=== PATIENT | male | born 1945 | race Caucasian/White ===

== ENCOUNTER → 2017-05-09 | Outpatient (CLI) | payer MEDICARE, BC ==
[~2017-05-09] MED LIST: no medications
== END ==
LOC: ROC 08:20
PROVIDERS: ATTEND Radiology Radiation Oncology
DX: Z02.9 Encounter for administrative examinations, unspecified (principal)

== ENCOUNTER → 2017-06-13 | Outpatient (CLI) | payer MEDICARE, BC ==
[~2017-06-13] MED LIST changes: +DOCU-131 PO; +TRAM50TA2 PO
== END ==
LOC: ROC 10:48
PROVIDERS: ATTEND Radiology Radiation Oncology
DX: C11.8 Malignant neoplasm of overlapping sites of nasopharynx (principal)
CPT/HCPCS: G0463

== ENCOUNTER 2017-06-27 11:15 | Emergency (ER) | payer MEDICARE, BC ==
[~2017-06-27] VITALS: Ht 157.5 cm; Wt 34.6 kg
[2017-06-27] MEDS ORDERED: SODIUM CHLORIDE FLUSH 10ML SYR IVF ONE (12:00)
[2017-06-27] MEDS ORDERED: SODIUM CHLORIDE 0.9% 1,000ML IVBOLUS ONE (12:00)
[2017-06-27 12:15] LABS: BASOPHILS # (AUTO) 0.01 x10^3/uL (0-0.1); BASOPHILS % (AUTO) 0 % (0-1); EOSINOPHILS # (AUTO) 0.01 x10^3/uL (0-0.4); EOSINOPHILS % (AUTO) 0 % (1-7); LYMPHOCYTES # (AUTO) 0.61 x10^3/uL (1-3.4); LYMPHOCYTES % (AUTO) 17 % (22-44); MD NO; MEAN CORPUSCULAR HEMOGLOBIN 31.8 pg (27.5-34.5); MEAN CORPUSCULAR HGB CONC 33.7 g/dL (33.2-36.2); MEAN CORPUSCULAR VOLUME 94.3 fL (81-97); MEAN PLATELET VOLUME 8.8 fL (7.4-10.4); MONOCYTES # (AUTO) 0.22 x10^3/uL (0.2-0.8); MONOCYTES % (AUTO) 6 % (2-9); NEUTROPHILS # (AUTO) 2.79 x10^3/uL (1.8-6.8); NEUTROPHILS % (AUTO) 77 % (42-75); PLATELET COUNT 166 x10^3/uL (130-400); RED BLOOD COUNT 4.36 x10^6/uL (4.38-5.82); RED CELL DISTRIBUTION WIDTH 14.7 % (9.4-14.8)
[2017-06-27 12:28] LABS: ALANINE AMINOTRANSFERASE 21 U/L (12-78); ALBUMIN 3.7 g/dL (3.4-5.0); ANION GAP 7 mmol/L (5-15); CALCIUM 11.4 mg/dL (8.5-10.1); CHLORIDE 98 mmol/L (98-107); CREATININE 1.05 mg/dL (0.7-1.3)
[2017-06-27 12:32] LABS: ALKALINE PHOSPHATASE 91 U/L (45-117); BILIRUBIN,TOTAL 0.4 mg/dL (0.2-1.0); TOTAL PROTEIN 7.4 g/dL (6.4-8.2); TROPONIN I < 0.015 ng/mL (0.000-0.045)
[2017-06-27 14:13] VITALS: BP 136/83
== END 2017-06-27 14:15 | disposition home or self-care (01) ==
LOC: ED 13:27
DX: R55 Syncope and collapse (principal); R05 Cough
CPT/HCPCS: 36415; 80053; 84484; 85025; 93005; 96360; 96361; 99285; J7030

== ENCOUNTER 2017-10-26 10:45 | Day surgery (SDC) | payer MEDICARE, BC ==
[~2017-10-26] VITALS: Ht 157.5 cm; Wt 57.2 kg
[2017-10-26] MEDS ORDERED: SODIUM CHLORIDE 0.9% 1,000 ML IV SCH (11:20)
[2017-10-26 11:22] VITALS: BP 94/69
[2017-10-26] MEDS ORDERED: LIDOCAINE 2%, 20ML ONE (11:43)
[2017-10-26] MEDS ORDERED: FENTANYL PF 100 MCG/2ML ONE (12:05)
[2017-10-26] MEDS ORDERED: MIDAZOLAM 1 MG/ML, 5ML ONE (12:06)
== END 2017-10-26 13:10 ==
LOC: OUT 10:45
PROVIDERS: ATTEND Surgery
DX: K94.23 Gastrostomy malfunction (principal); Z88.6 Allergy status to analgesic agent; Z88.8 Allergy status to other drugs, medicaments and biological substances; Z98.890 Other specified postprocedural states
CPT/HCPCS: 49450; 75984; C1729; J3490; J2250; J3010